=== PATIENT | male | born 1940 | race Caucasian/White ===

== ENCOUNTER 2017-05-08 11:23 | Outpatient (RCR) | payer MEDICARE, BC | END 2017-08-06 | disposition home or self-care (01) | LOC: CARDREHAB | DX: Z48.812 Encounter for surgical aftercare following surgery on the circulatory system (principal); Z95.5 Presence of coronary angioplasty implant and graft ==

== ENCOUNTER 2017-08-07 13:00 | Outpatient (RCR) | payer MEDICARE, BC | END 2017-08-15 14:10 | disposition home or self-care (01) | LOC: CARDREHAB 13:00 | DX: Z48.812 Encounter for surgical aftercare following surgery on the circulatory system (principal); Z95.5 Presence of coronary angioplasty implant and graft ==

== ENCOUNTER 2018-05-01 10:00 | Outpatient (RCR) | payer MEDICARE, BC | END 2018-05-06 | disposition still patient (30) | LOC: PT | DX: Z47.1 Aftercare following joint replacement surgery (principal); Z96.652 Presence of left artificial knee joint | CPT/HCPCS: G8978-GP; G8979-GP ==